=== PATIENT | female | born 1995 | race Caucasian/White ===

== ENCOUNTER 2019-04-08 12:54 | Emergency (ER) | payer SELFPAY ==
[2019-04-08] MEDS ORDERED: ASPIRIN 81 MG TABLET, CHEWABLE PO ONE (13:15)
[2019-04-08] MEDS ORDERED: NORMAL SALINE 1000 ML 1,000 ML IV ONE (13:16)
--- NOTE | 2019-04-08 13:16 | ER Document Report ---
ED Medical Screen (RME) - General Chief Complaint: Breathing Difficulty Stated Complaint: DIFFICULTY BREATHING Time Seen by Provider: 04/08/19 13:10 Primary Care Provider: SB MCCALLUM [Primary Care Provider] - Follow up as needed Mode of Arrival: Ambulatory Information source: Patient Notes: 24-year-old female presented to ED for complaint of palpitations and shortness of breath. She states she was not able to sleep last night due to the shortness of breath and palpitations. Her heart rate is 130. She states she has had 4 cups of coffee this morning she normally has 1. She states after she found her with a pulse rate was her chest did start hurting but it was not hurting before that. The EKG does show tachycardia at 139. Patient is alert oriented respir ations regular and unlabored. Blood pressure is 172/89 pulse is very regular. Patient is very anxious. She states she has been nauseated earlier she ate no longer nauseated. She states the only medical history she has PCOS. I have greeted and performed a rapid initial assessment of this patient. A comprehensive ED assessment and evaluation of the patient, analysis of test results and completion of medical decision making process will be conducted by an additional ED providers. Doctor's Discharge - Discharge Referrals: SB MCCALLUM [Primary Care Provider] - Follow up as needed
[2019-04-08 13:50] LABS: ABSOLUTE BASOPHILS # (AUTO) 0.1 10^3/uL (0.0-0.2); ABSOLUTE EOSINOPHILS # (AUTO) 0.2 10^3/uL (0.0-0.6); ABSOLUTE LYMPHOCYTES (AUTO) 5.9 10^3/uL (0.5-4.7); ABSOLUTE MONOCYTES (AUTO) 0.7 10^3/uL (0.1-1.4); ABSOLUTE NEUT (AUTO) 10.5 10^3/uL (1.7-8.2); BASOPHILS % (AUTO) 0.4 % (0-2); EOSINOPHILS % (AUTO) 1.3 % (0-6); HEMATOCRIT 41.3 % (36.0-47.0); HEMOGLOBIN 13.8 g/dL (12.0-15.5); LYMPHOCYTES % (AUTO) 34.1 % (13-45); MEAN CORPUSCULAR HEMOGLOBIN 28.3 pg (27.0-33.4); MEAN CORPUSCULAR HGB CONC 33.5 g/dL (32.0-36.0); MEAN CORPUSCULAR VOLUME 85 fl (80-97); MONOCYTES % (AUTO) 4.2 % (3-13); PLATELET COUNT 427 10^3/uL (150-450); RED BLOOD COUNT 4.88 10^6/uL (3.72-5.28); RED CELL DISTRIBUTION WIDTH 13.1 % (11.5-14.0); TOTAL CELLS COUNTED % (AUTO) 100 %; WHITE BLOOD COUNT 17.4 10^3/uL (4.0-10.5)
--- NOTE | 2019-04-08 14:20 | ER Document Report ---
ED General - General Chief Complaint: Palpitations Stated Complaint: DIFFICULTY BREATHING Time Seen by Provider: 04/08/19 13:10 Primary Care Provider: SB MCCALLUM [NO LOCAL MD] - Follow up as needed SALUD BARRAZA MD [COMMUNITY BASED STAFF] - Follow up as needed Mode of Arrival: Ambulatory TRAVEL OUTSIDE OF THE [place] IN LAST 30 DAYS: No - HPI Notes: 24-year-old female without prior PMH today drove herself here in private vehicle after having intermittent periods of heart racing sensations over the last few hours this am to now. pt denies prior h/o cardiac/pulm dz or prior palpitations that arequired any rx. 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 denies any amphetamine/diet pills or substance use at any time recent or past. denies etoh use. no cocaine ever or othe rdrugs including any Rx or illicit or otc/herbal/online meds. instead of drinking her u sual 1 cup of coffee this a.m since she had awoken a few hrs earlier than usual she endued up drinking few cups to [employer] pot she'd made. she started noticing racing heart on way to work but it subsided. ok at work then went to [employer] for tea refresher (has some caffeine) sx started again while driving back to work but more intense. she turned around and drove here worried she might be having NE. denies FM of early cardiac or sudden . She denies any passing out or near passing out though was lightheaded walking in to ED. denies any other stressors. says ius trying to lose weight. only food intake today was a yogurt and fruit. denies n/v pain anywhere. no leg or other edema or other dec exercise tolerance. no PND or orthopnea. - Related Data Allergies/Adverse Reactions: No Known Allergies Allergy (Unverified 04/08/19 16:12) Past Medical History - General Information source: Patient - Social History Smoking Status: Current Some Day Smoker Drug Abuse: None - denies Occupation: works day care Family History: Reviewed & Not Pertinent Patient has suicidal ideation: No Patient has homicidal ideation: No - Past Medical History Cardiac Medical History: Reports: None Pulmonary Medical History: Reports: None Review of Systems - Review of Systems Constitutional: See HPI, Weakness. denies: Chills, Diaphoresis, Fever, Malaise, Weight gain, Weight loss, Recent illness EENT: No symptoms reported. denies: Blurred vision, Double vision, Ear pain, Nose pain, Nose congestion, Nose discharge, Sinus pressure, Throat pain, Difficulty swallowing, Throat swelling, Mouth pain, Mouth swelling, Dental problem, Vertigo Cardiovascular: See HPI, Palpitations, Heart racing, Lightheaded. denies: Chest pain, Orthopnea, Dyspnea, Syncope, Dizziness, Edema, Paroxysmal Nocturnal Dysp Respiratory: See HPI. denies: Cough, Hurts to breathe, Hemoptysis, Short of breath, Sputum, Stridor, Wheezing Gastrointestinal: No symptoms reported Genitourinary: No symptoms reported Female Genitourinary: No symptoms reported Musculoskeletal: No symptoms reported Skin: No symptoms reported Hematologic/Lymphatic: No symptoms reported Neurological/Psychological: No symptoms reported Physical Exam - Vital signs Vitals: Pulse Ox 99 04/08/19 13:15 Interpretation: Tachycardic - 130-140 on monitor appears regular. No: Hypotensive, Hypertensive, Hypoxic, Tachypneic, Febrile - General General appearance: Alert, Anxious In distress: None - besides anxious re: heart - HEENT Head: Normocephalic, Atraumatic Eyes: Normal. No: Pale conjunctiva, Periorbital edema, Scleral icterus Conjunctiva: No: Injected Extraocular movements intact: Yes Eyelashes: Normal Pupils: PERRL Nasal: Normal Mouth/Lips: Normal Mucous membranes: Dry Pharynx: Normal Neck: Normal, Supple. No: Lymphadenopathy, Thyromegally - Respiratory Respiratory status: No respiratory distress Chest status: Nontender. No: Ecchymosis, Pain on movement, Pain with cough, Wounds, Accessory muscle use, Prolonged expirations, Splinting Breath sounds: Normal Chest palpation: Normal - Cardiovascular Rhythm: Regular, Tachycardia Heart sounds: Normal auscultation Murmur: No Friction rub: No Gallop: None auscultated Pulses: Normal: Radial, Dorsalis pedis Normal capillary refill: Yes - Abdominal Inspection: Normal Distension: No distension Bowel sounds: Normal Tenderness: Nontender Organomegaly: No organomegaly - Back Back: Normal, Nontender - Extremities General upper extremity: Normal inspection, Nontender, Normal color, Normal ROM, Normal temperature General lower extremity: Normal inspection, Nontender, Normal color, Normal ROM, Normal temperature, Normal weight bearing. No: Tara's sign - Neurological Neuro grossly intact: Yes Cognition: Normal Orientation: AAOx4 Harish Coma Scale Eye Opening: Spontaneous [place] Coma Scale Verbal: Oriented [place] Coma Scale Motor: Obeys Commands [place] Coma Scale Total: 15 Speech: Normal Motor strength normal: LUE, RUE, LLE, RLE Sensory: Normal - Psychological Associated symptoms: Normal affect, Normal mood, Anxious - Skin Skin Temperature: Warm Skin Moisture: Dry Skin Color: Normal Course - Re-evaluation Re-evalutation: Patient's HR continued to be in the 60s 70s after her 2 L IV fluids. ecg reviewed sinus arrythmia see that section for description. in remainder of observation and w/u she remained calm we had also initially given her 0.5 p.o. Ativan she was very articulate about the fact that she was working herself up knowing that her heart rate was high now but she had not had in her original history and continued in repeat exams and interviews any near-syncope or syncope. Again I do not suspect PE has no PE risk factors no immobilization no oral or other contraceptive or estrogen use no family or personal history no surgeries, she is a smoker and she is overweight but otherwise absolutely no hypoxia or respiratory findings without any supp oxygen during her ED observation of few hours. i explained i suspect this is likely dehydration though renal labs fine, w/ caffeine od, poor sleep. i explained i reviewed her ECG and no concerning findings. she was very reassured. someone from work had come to visit and make sure she was ok. i did discuss w/ her staying hydrated, eating enough nutrients calories to maintian her daily aoiding etoh too much caffiene, but we did discuss warning sx of (near) passing out exertional cp, dyspnea (OE) etc otherwise to f/u pcp. 04/08/19 19:34 04/15/19 15:52 - Vital Signs Vital signs: Temp Pulse Resp BP Pulse Ox 98.7 F 19 128/85 H 96 04/08/19 19:56 04/08/19 19:48 04/08/19 19:48 04/08/19 19:01 - Laboratory Result Diagrams: 04/08/19 13:24 04/08/19 13:24 Laboratory results interpreted by me: 04/08/19 04/08/19 04/08/19 13:24 13:24 14:17 WBC 17.4 H Absolute Neuts (auto) 10.5 H Absolute Lymphs (auto) 5.9 H Carbon Dioxide 21 L Glucose 142 H Calcium 10.6 H Total Protein 8.4 H Leukocyte Esterase Rfl TRACE H - EKG Interpretation by Me Additional EKG results interpreted by me: 04/08/19 14:20 Reviewed EKG today sinus tachycardia rate 139, no ST elevations depressions, QTC and QRS are within normal limits no evidence of hypertrophy no axis deviation voltage within normal limits. 04/08/19 19:08 Repeated EKG after tachycardia resolved @ 18:35. Sinus rate 69. All intervals are within normal limits. I wanted specifically to assess for any SD depressions or ST elevations that were diffuse to suggest a pericarditis but these were not present. The reason for this was because patient's labs were remarkable only for an elevated white count. But she continued to be afebrile and she had not had any cough or respiratory symptoms other than the shortness of breath. She continued not any hypoxia at all initially or throughout her ED observation and she has no risk factors for PE this was definitely considered but she is not on control she has no history she has no immobilization she has no family history. She is overweight. She does smoke. Those are her only potential risk factors. But after fluid administration and heart rate improvement she is asymptomatic. Discharge - Discharge Clinical Impression: Sinus arrhythmia seen on electrocardiogram, Rapid palpitations, Dehydration, Tachycardia with heart rate 121-140 beats per minute Condition: Good Disposition: HOME, SELF-CARE Additional Instructions: You were seen in the emergency department today for sensation that your heart was beating fast. It was about 120 and regular, but with IV fluids your heart rate was much better. Repeated an EKG and this also showed no signs of heart strain or enlargement of the heart chambers or arrhythmias that would be at risk for causing any problems for your heart. Please stay hydrated and prioritize sleep and try not to drink too much caffeine as that can dehydrate you as well and also make your heart rate faster. If you have any shortness of breath at rest or otherwise if you have sensation of near passing out or you do pass out or you have severe chest pain please seek medical attention otherwise please just follow-up with your primary care doctor for maintenance medical exams. Referrals: XENA,SB [NO LOCAL MD] - Follow up as needed SALUD BARRAZA MD [COMMUNITY BASED STAFF] - Follow up as needed
[2019-04-08 14:22] LABS: ALKALINE PHOSPHATASE 104 U/L (38-126); ANION GAP 18 (5-19); ASPARTATE AMINO TRANSFERASE 29 U/L (14-36); BILIRUBIN,DIRECT 0.2 mg/dL (0.0-0.4); BILIRUBIN,TOTAL 0.5 mg/dL (0.2-1.3); BLOOD UREA NITROGEN 10 mg/dL (7-20); CALCIUM 10.6 mg/dL (8.4-10.2); CARBON DIOXIDE 21 mmol/L (22-30); CHLORIDE 104 mmol/L (98-107); GLUCOSE 142 mg/dL (75-110); POTASSIUM 3.8 mmol/L (3.6-5.0); TOTAL PROTEIN 8.4 g/dL (6.3-8.2)
[2019-04-08 14:30] LABS: APPEARANCE,URINE CLEAR; BILIRUBIN,URINE NEGATIVE (NEGATIVE); COLOR,URINE YELLOW; GLUCOSE, URINE NEGATIVE (NEGATIVE); KETONES,URINE NEGATIVE (NEGATIVE); PROTEIN,URINE NEGATIVE (NEGATIVE); URINE SPECIFIC GRAVITY 1.006; UROBILINOGEN,URINE NEGATIVE mg/dL (<2.0)
--- NOTE | 2019-04-08 14:39 | RADIOLOGY REPORT (SQ) ---
EXAM DESCRIPTION: CHEST 2 VIEWS COMPLETED DATE/TIME: 04/08/2019 2:30 pm REASON FOR STUDY: chest pain tachycardia short of breath COMPARISON: None. EXAM PARAMETERS: NUMBER OF VIEWS: two views TECHNIQUE: Digital Frontal and Lateral radiographic views of the chest acquired. RADIATION DOSE: NA LIMITATIONS: none FINDINGS: LUNGS AND PLEURA: No opacities, masses or pneumothorax. No pleural effusion. MEDIASTINUM AND HILAR STRUCTURES: No masses or contour abnormalities. HEART AND VASCULAR STRUCTURES: Heart normal size. No evidence for failure. BONES: No acute findings. HARDWARE: None in the chest. OTHER: No other significant finding. IMPRESSION: NO ACUTE RADIOGRAPHIC FINDING IN THE CHEST. TECHNICAL DOCUMENTATION: JOB ID: [id number] [employer]- All Rights Reserved Reading location - IP/workstation name: [email or web address]
[2019-04-08 14:46] LABS: URINE AMPHETAMINES SCREEN NEGATIVE; URINE BARBITURATES SCREEN NEGATIVE; URINE BENZODIAZEPINES SCREEN NEGATIVE; URINE COCAINE SCREEN NEGATIVE; URINE MARIJUANA (THC) SCREEN NEGATIVE; URINE METHADONE SCREEN NEGATIVE; URINE PHENCYCLIDINE SCREEN NEGATIVE
[2019-04-08] MEDS ORDERED: LORAZEPAM 0.5 MG TABLET PO PRN (15:38)
[2019-04-08] MEDS ORDERED: RINGERS SOLUTION,LACTATED 1,000 ML IV ONE (15:38)
[2019-04-08 19:56] VITALS: BP 128/85
--- NOTE | 2019-04-08 23:42 | EKG REPORT ---
SEVERITY:- OTHERWISE NORMAL ECG - SINUS TACHYCARDIA : Confirmed by: Holley Franco 08-Apr-2019 23:41:53
--- NOTE | 2019-04-08 23:42 | EKG REPORT ---
SEVERITY:- OTHERWISE NORMAL ECG - SINUS ARRHYTHMIA, RATE [id number] : Confirmed by: Holley Franco 08-Apr-2019 23:41:47
== END 2019-04-08 19:57 | disposition home or self-care (01) ==
LOC: ER 12:54
DX: R00.2 Palpitations (principal); R00.0 Tachycardia, unspecified; E86.0 Dehydration; R53.1 Weakness; F17.200 Nicotine dependence, unspecified, uncomplicated; E66.3 Overweight
CPT/HCPCS: 93005 ×2; 99285; 96360; 96361; 36415; 87086; 83735; 84443; 85025; 80053; 81001; 84484; 80307; 71046; 93010; J7030; J7120

== ENCOUNTER 2019-05-20 02:20 | Emergency (ER) | payer SELFPAY ==
[2019-05-20] MEDS ORDERED: LORAZEPAM INJ 2 MG/1 ML VIAL IV ONE (03:18)
--- NOTE | 2019-05-20 03:21 | ER Document Report ---
ED General - General Chief Complaint: High Blood Pressure Stated Complaint: BLOOD PRESSURE ISSUES Time Seen by Provider: 05/20/19 03:08 Notes: Patient is a 24-year-old female that comes to the emergency department for chief complaint of her heart racing, sensation of tightness in her chest, and the sensation of not being able to calm down. She states that she has been dealing with this intermittently for the past 5 days but it would not go away. She denies fever, cough, vomiting, shortness of breath, actual pain in the chest, any locations of pain. She states sometimes she starts tingling in her arms. She states that for started when she drank some moonshine on , she has not had any alcohol since then, she denies caffeine since then, recreational drugs. She states she has had panic attacks in the past but they usually go away and are not this bad. She states she has a history of PCOS and takes metformin for this. TRAVEL OUTSIDE OF THE [place] IN LAST 30 DAYS: No - Related Data Allergies/Adverse Reactions: No Known Allergies Allergy (Unverified 04/08/19 16:12) Home Medications: metformin 2 tabs qday Past Medical History - General Information source: Patient - Social History Smoking Status: Former Smoker Frequency of alcohol use: None Drug Abuse: None Lives with: Family Family History: Reviewed & Not Pertinent Patient has suicidal ideation: No Patient has homicidal ideation: No Renal/ Medical History: Reports: Hx Ovarian Cysts - Immunizations Immunizations up to date: Yes Hx Diphtheria, Pertussis, Tetanus Vaccination: Yes Review of Systems - Review of Systems Constitutional: No symptoms reported EENT: No symptoms reported Cardiovascular: See HPI Respiratory: See HPI Gastrointestinal: No symptoms reported Genitourinary: No symptoms reported Female Genitourinary: No symptoms reported Musculoskeletal: No symptoms reported Skin: No symptoms reported Hematologic/Lymphatic: No symptoms reported Neurological/Psychological: See HPI Physical Exam - Vital signs Vitals: Temp Pulse Resp BP Pulse Ox 97.9 F 101 H 20 171/91 H 99 05/20/19 02:26 05/20/19 02:26 05/20/19 02:26 05/20/19 02:26 05/20/19 02:26 - Notes Notes: GENERAL: Alert, interacts well. HEAD: Normocephalic, atraumatic. EYES: Pupils equal, round, and reactive to light. Slightly dilated. Extraocular movements intact. ENT: Oral mucosa moist, tongue midline. Oropharynx unremarkable. Airway patent. Nares patent, no nasal septal hematoma, TM's intact. NECK: Full range of motion. Supple. Trachea midline. LUNGS: Clear to auscultation bilaterally, no wheezes, rales, or rhonchi. No respiratory distress. HEART: Tachycardic, occasional extrasystoles, no murmur ABDOMEN: Soft, non-tender. Non-distended. Bowel sounds present in all 4 quadrants. GENITOURINARY: Deferred EXTREMITIES: Moves all 4 extremities spontaneously. No edema, normal radial and dorsalis pedis pulses bilaterally. No cyanosis. BACK: no cervical, thoracic, lumbar midline tenderness. No saddle anesthesia, normal distal neurovascular exam. Moves all extremities in full range of motion. NEUROLOGICAL: Alert and oriented x3. Normal speech. Cranial nerves II through XII grossly intact. PSYCH: Patient is jittery, shaky, slight quiver in her voice. Good eye contact. Unremarkable otherwise. SKIN: Warm, dry, normal turgor. No rashes or lesions noted. Course - Re-evaluation Re-evalutation: Patient initially hypertensive, tachycardic, jittery, shaky. She is not suicidal, not homicidal, denies depression, denies home stressors, states that she does not know why she feels this way. She does state that initially felt like a panic attack but it would not go away. She was given 0.5 mg of IV Ativan. After this abnormal vital signs resolved, jitteriness resolved, patient states she feels completely better. She states appreciation. CBC does show leukocytosis, this is unchanged from prior, chest x-ray unremarkab le, urinalysis unremarkable, no signs of infection on exam, no symptoms on reevaluation. Denies history of IV drug abuse, denies chest pain. No fever. Nonspecific. Chemistry unremarkable, negative, thyroid evaluation unremarkable, EKG unremarkable. Discussed with patient. She states that she will follow-up with primary care for additional management but she is hoping for treatment for something to help her sleep and for panic attack when they occur. She was provided with Vistaril. She is going home with family. I discussed all details of her work-up, recommendations, and return precautions at length. Patient states she is grateful, stable at time of discharge. - Vital Signs Vital signs: Temp Pulse Resp BP Pulse Ox 97.9 F 80 20 141/94 H 99 05/20/19 07:24 05/20/19 07:24 05/20/19 07:24 05/20/19 07:24 05/20/19 07:24 - Laboratory Result Diagrams: 05/20/19 04:00 05/20/19 04:00 Laboratory results interpreted by me: 05/20/19 05/20/19 04:00 04:00 WBC 16.0 H Absolute Neuts (auto) 12.7 H Seg Neutrophils % 79.8 H Glucose 112 H Calcium 10.4 H Total Protein 8.5 H Albumin 5.1 H Discharge - Discharge Clinical Impression: Palpitations, Panic attack Condition: Stable Disposition: HOME, SELF-CARE Additional Instructions: Your work-up is reassuring, your evaluation is most consistent with a panic attack based on your symptoms and resolution with treatment. I recommend that you take the Vistaril as needed in the event of a panic attack or insomnia, please follow-up with your primary care provider closely for additional management including possible daily medication for reduction of panic attack incidents. See additional details below. Return for any concerning symptoms including difficulty breathing, passing out, symptoms that will not res olve, fever, or any other concerning or worsening symptoms. Panic Attack The cause of panic attacks is unknown. Symptoms can include chest pain, shortness of breath, palpitations, sweats, and a sense of smothering or impending doom. In time, the panic attacks can lead to generalized anxiety and phobias. Because the symptoms can mimic heart attack, pulmonary embolism, and other serious diseases, the physician has evaluated you for these conditions. There is no evidence of a serious problem. An acute panic attack usually goes away by itself without treatment. A severe attack can be treated with medicine to calm you. Long-term, antidepressant medicines may help prevent attacks. Counselling can also be very beneficial in dealing with panic attacks. Panic attacks are less likely if you are getting regular exercise, proper diet, and plenty of sleep. It's normal for panic attacks to cause many frightening symptoms. However, you should call or return if your symptoms change significantly or if you are worsening. Prescriptions: Hydroxyzine Pamoate [Vistaril 25 mg Capsule] 1 - 2 cap PO Q6 PRN #30 capsule PRN Reason: Forms: Return to Work
[2019-05-20 04:15] LABS: ABSOLUTE BASOPHILS # (AUTO) 0.1 10^3/uL (0.0-0.2); ABSOLUTE EOSINOPHILS # (AUTO) 0.1 10^3/uL (0.0-0.6); ABSOLUTE LYMPHOCYTES (AUTO) 2.4 10^3/uL (0.5-4.7); ABSOLUTE MONOCYTES (AUTO) 0.7 10^3/uL (0.1-1.4); ABSOLUTE NEUT (AUTO) 12.7 10^3/uL (1.7-8.2); BASOPHILS % (AUTO) 0.5 % (0-2); EOSINOPHILS % (AUTO) 0.4 % (0-6); HEMATOCRIT 42.7 % (36.0-47.0); HEMOGLOBIN 14.3 g/dL (12.0-15.5); LYMPHOCYTES % (AUTO) 15.1 % (13-45); MEAN CORPUSCULAR HEMOGLOBIN 28.4 pg (27.0-33.4); MEAN CORPUSCULAR HGB CONC 33.6 g/dL (32.0-36.0); MEAN CORPUSCULAR VOLUME 85 fl (80-97); MONOCYTES % (AUTO) 4.2 % (3-13); PLATELET COUNT 351 10^3/uL (150-450); RED BLOOD COUNT 5.05 10^6/uL (3.72-5.28); RED CELL DISTRIBUTION WIDTH 12.9 % (11.5-14.0); SEGMENTED NEUTROPHILS % (AUTO) 79.8 % (42-78); TOTAL CELLS COUNTED % (AUTO) 100 %
[2019-05-20 04:19] LABS: APPEARANCE,URINE CLEAR; BILIRUBIN,URINE NEGATIVE (NEGATIVE); COLOR,URINE STRAW; GLUCOSE, URINE NEGATIVE (NEGATIVE); KETONES,URINE NEGATIVE (NEGATIVE); LEUKOCYTE ESTERASE,URINE NEGATIVE (NEGATIVE); NITRITE,URINE NEGATIVE (NEGATIVE); PROTEIN,URINE NEGATIVE (NEGATIVE); URINE SPECIFIC GRAVITY 1.004; UROBILINOGEN,URINE NEGATIVE mg/dL (<2.0)
--- NOTE | 2019-05-20 04:28 | RADIOLOGY REPORT (SQ) ---
EXAM DESCRIPTION: XR CHEST 1 VIEW COMPLETED DATE/TME: 05/20/2019 03:17 CLINICAL HISTORY: 24 years Female, chest tightness COMPARISON:Apr 08 2019 NUMBER OF VIEWS/TECHNIQUE: 1/AP FINDINGS: Adequate lung volume, clear parenchyma, normal cardiac silhouette, and intact bony thorax. IMPRESSION: No acute cardiopulmonary findings.
[2019-05-20 04:29] LABS: ALBUMIN 5.1 g/dL (3.5-5.0); ALKALINE PHOSPHATASE 111 U/L (38-126); ANION GAP 14 (5-19); ASPARTATE AMINO TRANSFERASE 29 U/L (14-36); BILIRUBIN,DIRECT 0.3 mg/dL (0.0-0.4); BILIRUBIN,TOTAL 0.4 mg/dL (0.2-1.3); BLOOD UREA NITROGEN 10 mg/dL (7-20); CALCIUM 10.4 mg/dL (8.4-10.2); CARBON DIOXIDE 25 mmol/L (22-30); CHLORIDE 103 mmol/L (98-107); GLUCOSE 112 mg/dL (75-110); POTASSIUM 4.2 mmol/L (3.6-5.0); TOTAL PROTEIN 8.5 g/dL (6.3-8.2)
[2019-05-20 04:33] LABS: ALCOHOL < 10 mg/dL (NONE DETECTED); URINE AMPHETAMINES SCREEN NEGATIVE; URINE BARBITURATES SCREEN NEGATIVE; URINE BENZODIAZEPINES SCREEN NEGATIVE; URINE COCAINE SCREEN NEGATIVE; URINE MARIJUANA (THC) SCREEN NEGATIVE; URINE METHADONE SCREEN NEGATIVE; URINE PHENCYCLIDINE SCREEN NEGATIVE
[2019-05-20 04:45] LABS: FREE T4 (FREE THYROXINE) 1.1 ng/dL (0.78-2.19)
[2019-05-20 04:59] LABS: THYROID STIMULATING HORMONE 2.84 uIU/mL (0.47-4.68)
--- NOTE | 2019-05-20 06:41 | EKG REPORT ---
SEVERITY:- OTHERWISE NORMAL ECG - SINUS ARRHYTHMIA, RATE [id number] : Confirmed by: Jose Manuel Amor MD 20-May-2019 06:41:24
[2019-05-20 07:29] VITALS: BP 141/94
== END 2019-05-20 07:26 | disposition home or self-care (01) ==
LOC: ER 02:20
DX: F41.0 Panic disorder [episodic paroxysmal anxiety] (principal); R00.2 Palpitations; H57.04 Mydriasis; R00.0 Tachycardia, unspecified; I49.49 Other premature depolarization; R07.89 Other chest pain; R20.2 Paresthesia of skin; I10 Essential (primary) hypertension; E28.2 Polycystic ovarian syndrome; Z79.84 Long term (current) use of oral hypoglycemic drugs; Z87.891 Personal history of nicotine dependence
CPT/HCPCS: 93005; 99284; 96374; 36415; 84439; 80307 ×2; 84443; 85025; 81025; 80053; 81001; 71045; 93010; J2060